=== PATIENT | male | born 1990 | race Caucasian/White ===

== ENCOUNTER 2018-11-10 08:56 | Emergency (ER) | payer OTHER ==
[2018-11-10 09:12] VITALS: BP 124/87; PULSE 84; RESP 18; TEMP 98.5
--- NOTE | 2018-11-10 09:25 | ED ---
ENT HPI - General Chief complaint: ENT Stated complaint: sore throat Time Seen by Provider: 11/10/18 09:00 Source: patient, RN notes reviewed, old records reviewed Mode of arrival: ambulatory Limitations: no limitations - History of Present Illness Initial comments: Patient is a 19-year-old male has restarted today with sore throat 4 days. Patient reports that it seems it seemed he complains a minor cough as well. Patient states is taking DayQuil for relief of symptoms. Patient states that he's had a nonsmoker. Denies any fevers or chills.Patient denies any recent fever, chills, shortness of breath, chest pain, back pain, abdominal pain, nausea vomiting, numbness or tingling, dysuria or hematuria, constipation or diarrhea, headaches or visual changes, or any other current symptoms - Related Data Previous Rx's Medication Instructions Recorded Azithromycin [Zithromax Z-pack] 0 mg PO DIRECTED #6 tab 11/10/18 Fluticasone Propionate [Flonase 1 spray EA NOSTRIL BID #1 bottle 11/10/18 Allergy Relief] Loratadine-Pseudoeph 5-120 mg 1 each PO Q12HR #20 tab 11/10/18 [Claritin-D 12 HR] Allergies Allergy/AdvReac Type Severity Reaction Status Date / Time No Known Allergies Allergy Verified 11/10/18 09:09 Review of Systems ROS Statement: Those systems with pertinent positive or pertinent negative responses have been documented in the HPI. ROS Other: All systems not noted in ROS Statement are negative. Past Medical History Past Medical History: No Reported History History of Any Multi-Drug Resistant Organisms: None Reported Past Surgical History: Orthopedic Surgery Additional Past Surgical History / Comment(s): LEFT KNEE SURGERY Past Psychological History: No Psychological Hx Reported Smoking Status: Never smoker Past Alcohol Use History: Occasional Past Drug Use History: None Reported General Exam - General Exam Comments Initial Comments: 19-year-old male. Alert and oriented. No distress. Limitations: no limitations General appearance: alert, in no apparent distress Head exam: Present: atraumatic, normocephalic, normal inspection Eye exam: Present: normal appearance, PERRL, EOMI. Absent: scleral icterus, conjunctival injection, periorbital swelling ENT exam: Present: normal exam, normal oropharynx (Minimal erythema. No exudate. No tonsillar adenopathy or swelling.), mucous membranes moist Neck exam: Present: normal inspection. Absent: tenderness, meningismus, lymphadenopathy Respiratory exam: Present: normal lung sounds bilaterally. Absent: respiratory distress, wheezes, rales, rhonchi, stridor Cardiovascular Exam: Present: regular rate, normal rhythm, normal heart sounds. Absent: systolic murmur, diastolic murmur, rubs, gallop, clicks GI/Abdominal exam: Present: soft, normal bowel sounds. Absent: distended, tenderness, guarding, rebound, rigid Extremities exam: Present: normal inspection, full ROM, normal capillary refill. Absent: tenderness, pedal edema, joint swelling, calf tenderness Back exam: Present: normal inspection Neurological exam: Present: alert, oriented X3, CN II-XII intact Psychiatric exam: Present: normal affect, normal mood Course Vital Signs 11/10/18 09:09 Temperature 98.5 F Pulse Rate 84 Respiratory 18 Rate Blood Pressure 124/87 O2 Sat by Pulse 100 Oximetry Medical Decision Making - Medical Decision Making Patient is a 27-year-old male presents emergency department today for violation for sore throat, he states this feels worse in the morning. Discussed Patient seems most likely be suffering from postnasal drip. Discussed putting the Patient on ALLERGY medication of Flonase. Discussed if symptoms continue to progress or worsen that he can start azithromycin for bronchitis he does state he has had a productive cough and slight cough. His lungs are clear to auscultation. Patient understands treatment plan will comply. Return parameters were discussed. Disposition Clinical Impression: PND (post-nasal drip), URI (upper respiratory infection) Disposition: HOME SELF-CARE Condition: Good Instructions (If sedation given, give patient instructions): Allergies (ED), Postnasal Drip (DC), Upper Respiratory Infection (ED) Additional Instructions: Take decongestant nasal spray and oral decongestants as prescribed. His symptoms progress or he have a worsening productive cough started azithromycin. Follow-up with your PCP. Prescriptions: Loratadine-Pseudoeph 5-120 mg [Claritin-D 12 HR] 1 each PO Q12HR #20 tab Fluticasone Propionate [Flonase Allergy Relief] 1 spray EA NOSTRIL BID #1 bottle Azithromycin [Zithromax Z-pack] 0 mg PO DIRECTED #6 tab Is patient prescribed a controlled substance at d/c from ED?: No Referrals: Travon Rouse MD [Primary Care Provider] - 1-2 days Time of Disposition: 09:22
== END 2018-11-10 10:06 | disposition home or self-care (01) ==
LOC: EC 08:56
DX: J06.9 Acute upper respiratory infection, unspecified (principal); R09.82 Postnasal drip
CPT/HCPCS: 99283

== ENCOUNTER 2019-05-07 09:51 | Emergency (ER) | payer OTHER ==
[2019-05-07 09:57] VITALS: BP 151/89; PULSE 62; RESP 20; TEMP 97.7
[2019-05-07] MEDS ORDERED: LIDOCAINE 1% INJ 10MG/ML (20 ML MDV) SQ ONE (10:25)
--- NOTE | 2019-05-07 10:32 | ED ---
Skin/Abscess/FB HPI - General Chief complaint: Skin/Abscess/Foreign Body Stated complaint: finger swelling Time Seen by Provider: 05/07/19 10:15 Source: patient Mode of arrival: ambulatory Limitations: no limitations - History of Present Illness Initial comments: Patient is a 28-year-old male presenting to emergency Department with complaints of a possible abscess in his right middle finger. Patient states he went to [facility] 4 days ago with a possible abscess on his right middle finger that was drained. Patient was started on Bactrim as well. Patient returned the next day to [facility] because the swelling had increased. Patient was told there was nothing else to be done at this time and let the antibiotics work. Patient presents to ER today due to worsening swelling and spreading of this abscess. Patient has been taking the Bactrim as prescribed. Patient denies any fever, chills, nausea, vomiting. Patient has no other complaints at this time. Upon arrival to the ER, vital signs are stable. - Related Data Previous Rx's Medication Instructions Recorded Azithromycin [Zithromax Z-pack] 0 mg PO DIRECTED #6 tab 11/10/18 Fluticasone Propionate [Flonase 1 spray EA NOSTRIL BID #1 bottle 11/10/18 Allergy Relief] Loratadine-Pseudoeph 5-120 mg 1 each PO Q12HR #20 tab 11/10/18 [Claritin-D 12 HR] Cephalexin [Keflex] 500 mg PO Q6HR 5 Days #20 cap 05/07/19 Allergies Allergy/AdvReac Type Severity Reaction Status Date / Time No Known Allergies Allergy Verified 05/07/19 09:57 Review of Systems ROS Statement: Those systems with pertinent positive or pertinent negative responses have been documented in the HPI. ROS Other: All systems not noted in ROS Statement are negative. Past Medical History Past Medical History: No Reported History History of Any Multi-Drug Resistant Organisms: None Reported Past Surgical History: Orthopedic Surgery Additional Past Surgical History / Comment(s): LEFT KNEE SURGERY Past Psychological History: No Psychological Hx Reported Smoking Status: Never smoker Past Alcohol Use History: Occasional Past Drug Use History: None Reported General Exam - General Exam Comments Initial Comments: GENERAL: Well-appearing, well-nourished and in no acute distress. HEAD: Atraumatic, normocephalic. EYES: Pupils equal round and reactive to light, extraocular movements intact, sclera anicteric, conjunctiva are normal. ENT: Moist mucous membranes. NECK: Normal range of motion, supple without lymphadenopathy or JVD. LUNGS: Breath sounds clear to auscultation bilaterally and equal. No wheezes rales or rhonchi. HEART: Regular rate and rhythm without murmurs, rubs or gallops. EXTREMITIES: Patient has full range of motion of his right fingers. Patient is neurovascular intact. NEUROLOGICAL: Cranial nerves II through XII grossly intact. Normal speech, normal gait. PSYCH: Normal mood, normal affect. SKIN: Warm, Dry, normal turgor, no rashes. Patient has a large abscess on the palmar aspect of the right middle finger, distal phalanx area. Limitations: no limitations Course Vital Signs 05/07/19 05/07/19 09:55 11:27 Temperature 97.7 F 97.7 F Pulse Rate 62 62 Respiratory 20 20 Rate Blood Pressure 151/89 151/89 O2 Sat by Pulse 99 99 Oximetry Procedures - Incision & Drainage Consent Obtained: verbal consent Indication: Abscess Site: other (Right middle finger, distal phalanx, palmar aspect) Size (cm): 3 Anesthetic Used: lidocaine 1% Amount (mLs): 2 I&D Cleaning Method: Chloroprep, Alcohol Wipe Sterile Field Used?: Yes Scalpel Used: #11 Needle Aspiration Performed?: No Irrigation Performed?: No I&D Drainage Obtained: Pus, Blood Culture Obtained?: No Patient Tolerated Procedure: well Medical Decision Making - Medical Decision Making Patient is a 28-year-old male presenting with an abscess to the right middle finger, palmar aspect, distal phalanx area consistent with a possible felon with associated cellulitis. Patient is currently taking Bactrim. An I&D was performed at [facility] 4 days ago however the abscess is increasing in size. Vital signs are stable, afebrile. An I&D was performed with moderate amount of drainage. Patient tolerated procedure well. Patient will continue with Bactrim and also added Keflex. Patient was given referral to hand specialist for follow-up. Patient is stable for discharge at this time and he is in agreement with this plan of care. Return parameters were discussed with the patient he verbalizes understanding. Case discussed with Dr. Scott. Disposition Clinical Impression: Felon of finger of right hand, Cellulitis of right middle finger Disposition: HOME SELF-CARE Condition: Stable Instructions (If sedation given, give patient instructions): Abscess Incision and Drainage (DC) Additional Instructions: Please return to the Emergency Department if symptoms worsen or any other concerns. Follow-up with PCP or hand doctor as discussed. Take antibiotics as directed. Continue with warm water soaks once or twice a day. Prescriptions: Cephalexin [Keflex] 500 mg PO Q6HR 5 Days #20 cap Is patient prescribed a controlled substance at d/c from ED?: No Referrals: Travon Rouse MD [Primary Care Provider] - 1-2 days Won Morris DO [Doctor of Osteopathic Medicine] - 1-2 days
== END 2019-05-07 11:26 | disposition home or self-care (01) ==
LOC: EC 09:51
DX: L03.011 Cellulitis of right finger (principal)
CPT/HCPCS: 99283; 10060; J2001

== ENCOUNTER 2020-03-13 09:34 | Emergency (ER) | payer BC ==
[2020-03-13 09:38] VITALS: BP 174/95; PULSE 72; RESP 18; TEMP 97.2
--- NOTE | 2020-03-13 10:16 | XR ---
EXAMINATION TYPE: XR chest 2V DATE OF EXAM: 03/13/2020 COMPARISON: None HISTORY: 29-year-old male with cough TECHNIQUE: PA and lateral views FINDINGS: The cardiomediastinal silhouette, aorta, and pulmonary vasculature are within normal limits. Mild elo tral peribronchial cuffing. No consolidation or pleural effusion. IMPRESSION: Mild central peribronchial cuffing could reflect bronchitis or asthma. No focal infiltrate.
--- NOTE | 2020-03-13 10:23 | ED ---
URI HPI - General Chief Complaint: Upper Respiratory Infection Stated Complaint: bronchitis Time Seen by Provider: 03/13/20 09:39 Source: patient, RN notes reviewed Mode of arrival: ambulatory Limitations: no limitations - History of Present Illness Initial Comments: This a 29-year-old male presents emergency Department chief complaint cough congestion times one week. Patient states has worsened over the last 2 days. He stateswheezing. Patient states she is a nonsmoker no history of asthma. Patient believes he has acute bronchitis states he states then around multiple sick people with recent diagnosis. Patient denies fevers or chills no chest pain no headache no dizziness mild nasal congestion. - Related Data Previous Rx's Medication Instructions Recorded Azithromycin [Zithromax Z-pack (6 0 mg PO DIRECTED #6 tab 11/10/18 tabs)] Fluticasone Propionate [Flonase 1 spray EA NOSTRIL BID #1 bottle 11/10/18 Allergy Relief] Loratadine-Pseudoeph 5-120 mg 1 each PO Q12HR #20 tab 11/10/18 [Claritin-D 12 HR] Cephalexin [Keflex] 500 mg PO Q6HR 5 Days #20 cap 05/07/19 Azithromycin [Zithromax Z-pack (6 0 mg PO DIRECTED #1 pack 03/13/20 tabs)] predniSONE 50 mg PO DAILY #5 tab 03/13/20 Allergies Allergy/AdvReac Type Severity Reaction Status Date / Time No Known Allergies Allergy Verified 03/13/20 09:38 Review of Systems ROS Statement: Those systems with pertinent positive or pertinent negative responses have been documented in the HPI. ROS Other: All systems not noted in ROS Statement are negative. Past Medical History Past Medical History: No Reported History History of Any Multi-Drug Resistant Organisms: None Reported Past Surgical History: Orthopedic Surgery Additional Past Surgical History / Comment(s): LEFT KNEE SURGERY Past Psychological History: No Psychological Hx Reported Smoking Status: Never smoker Past Alcohol Use History: Occasional Past Drug Use History: None Reported General Exam Limitations: no limitations General appearance: alert, in no apparent distress Head exam: Present: atraumatic, normocephalic, normal inspection Eye exam: Present: normal appearance, PERRL, EOMI. Absent: scleral icterus, conjunctival injection, periorbital swelling ENT exam: Present: normal exam, normal oropharynx, mucous membranes moist Neck exam: Present: normal inspection, full ROM. Absent: tenderness, meningismus, lymphadenopathy Respiratory exam: Present: wheezes (Minimal). Absent: respiratory distress, rales, rhonchi, stridor Cardiovascular Exam: Present: regular rate, normal rhythm, normal heart sounds. Absent: systolic murmur, diastolic murmur, rubs, gallop, clicks Course Vital Signs 03/13/20 09:34 Temperature 97.2 F L Pulse Rate 72 Respiratory 18 Rate Blood Pressure 174/95 O2 Sat by Pulse 99 Oximetry Medical Decision Making - Medical Decision Making X-ray shows evidence of acute bronchitis. Patient was started on azithromycin, steroid pack. Patient's blood pressure is mildly elevated he is advised to follow-up with PCP for recheck and further monitoring. Disposition Clinical Impression: Bronchitis Disposition: HOME SELF-CARE Condition: Stable Instructions (If sedation given, give patient instructions): Upper Respiratory Infection (ED) Additional Instructions: Please return to the Emergency Department if symptoms worsen or any other concerns. Prescriptions: predniSONE 50 mg PO DAILY #5 tab Azithromycin [Zithromax Z-pack (6 tabs)] 0 mg PO DIRECTED #1 pack Is patient prescribed a controlled substance at d/c from ED?: No Referrals: Travon Rouse MD [Primary Care Provider] - 1-2 days Time of Disposition: 10:23
== END 2020-03-13 10:26 | disposition home or self-care (01) ==
LOC: EC 09:34
DX: J40 Bronchitis, not specified as acute or chronic (principal)
CPT/HCPCS: 71046; 99283

== ENCOUNTER → 2020-04-13 | Outpatient (CLI) | payer BC | END | disposition home or self-care (01) | LOC: LABWHC1 13:54 | PROVIDERS: ATTEND Emergency Medicine | DX: Z20.828 Contact with and (suspected) exposure to other viral communicable diseases (principal) | CPT/HCPCS: U0003; C9803 ==

== ENCOUNTER 2020-12-20 10:23 | Emergency (ER) | payer BC ==
[2020-12-20 10:26] VITALS: BP 165/92; PULSE 73; RESP 16; TEMP 97.9
--- NOTE | 2020-12-20 11:05 | ED ---
General Adult HPI - General Chief complaint: Extremity Injury, Lower Stated complaint: toe problem Time Seen by Provider: 12/20/20 10:28 Source: patient, RN notes reviewed Mode of arrival: ambulatory Limitations: no limitations - History of Present Illness Initial comments: Is a 30-year-old male presents to the emergency department complaining of right great toe pain. On the medial aspect he does have a small paronychia he denied any injury or trauma. He denied any history of ingrown toenails. He did note that he stubbed his toe 3 days ago. He notes that the toe became more painful over the last 3 days. He denied any other issues or complaints. He denied any chest pain shortness of breath headache nausea vomiting diarrhea constipation fever fatigue chills. - Related Data Previous Rx's Medication Instructions Recorded Azithromycin [Zithromax Z-pack (6 0 mg PO DIRECTED #6 tab 11/10/18 tabs)] Fluticasone Propionate [Flonase 1 spray EA NOSTRIL BID #1 bottle 11/10/18 Allergy Relief] Loratadine-Pseudoeph 5-120 mg 1 each PO Q12HR #20 tab 11/10/18 [Claritin-D 12 HR] Cephalexin [Keflex] 500 mg PO Q6HR 5 Days #20 cap 05/07/19 Azithromycin [Zithromax Z-pack (6 0 mg PO DIRECTED #1 pack 03/13/20 tabs)] predniSONE 50 mg PO DAILY #5 tab 03/13/20 Cephalexin [Keflex] 500 mg PO Q6HR #40 cap 12/20/20 Allergies Allergy/AdvReac Type Severity Reaction Status Date / Time No Known Allergies Allergy Verified 03/13/20 09:38 Review of Systems ROS Statement: Those systems with pertinent positive or pertinent negative responses have been documented in the HPI. ROS Other: All systems not noted in ROS Statement are negative. Past Medical History Past Medical History: No Reported History History of Any Multi-Drug Resistant Organisms: None Reported Past Surgical History: Orthopedic Surgery Additional Past Surgical History / Comment(s): LEFT KNEE SURGERY Past Psychological History: No Psychological Hx Reported Smoking Status: Never smoker Past Alcohol Use History: Occasional Past Drug Use History: None Reported General Exam Limitations: no limitations General appearance: alert, in no apparent distress Head exam: Present: atraumatic, normocephalic, normal inspection Eye exam: Present: normal appearance, PERRL, EOMI. Absent: scleral icterus, conjunctival injection, periorbital swelling Neck exam: Present: normal inspection Respiratory exam: Present: normal lung sounds bilaterally. Absent: respiratory distress, wheezes, rales, rhonchi, stridor Cardiovascular Exam: Present: regular rate, normal rhythm, normal heart sounds. Absent: systolic murmur, diastolic murmur, rubs, gallop, clicks Extremities exam: Present: normal inspection, full ROM, normal capillary refill, other (Very small right great toe medial paronychia, nontender.). Absent: tenderness, pedal edema, joint swelling, calf tenderness Neurological exam: Present: alert, oriented X3 Psychiatric exam: Present: normal affect, normal mood Skin exam: Present: warm, dry, intact, normal color. Absent: rash Course Vital Signs 12/20/20 10:24 Temperature 97.9 F Pulse Rate 73 Respiratory 16 Rate Blood Pressure 165/92 O2 Sat by Pulse 99 Oximetry Medical Decision Making - Medical Decision Making 1-year-old male with a right great toe paronychia. Nailfold was gently lifted to express pus. Patient states that his toe feels better after. Case discussed with Dr. Molina outpatient discharge home with follow-up to primary care. Disposition Clinical Impression: Paronychia of great toe of right foot Disposition: HOME SELF-CARE Condition: Stable Instructions (If sedation given, give patient instructions): Paronychia (ED) Additional Instructions: Please return to the Emergency Department if symptoms worsen or any other concerns. Follow-up with primary care in the next several days. Take antibiotics as prescribed. Salt water rinses washes. Is patient prescribed a controlled substance at d/c from ED?: No Referrals: Travon Rouse MD [Primary Care Provider] - 1-2 days Time of Disposition: 11:04
== END 2020-12-20 11:15 | disposition home or self-care (01) ==
LOC: EC 10:23
DX: L03.031 Cellulitis of right toe (principal)
CPT/HCPCS: 99283

== ENCOUNTER → 2021-02-03 | Outpatient (CLI) | payer BC ==
--- NOTE | 2021-02-04 08:25 | MR ---
EXAMINATION TYPE: MR knee LT wo con DATE OF EXAM: 02/03/2021 COMPARISON: None. HISTORY: Lt knee anterior and posterior pain, locking and swelling x5 months. TECHNIQUE: Multiplanar, multisequence imaging of the left knee is performed without IV contrast. FINDINGS: MEDIAL MENISCUS: Anterior horn is intact without tear. Subtle increased signal and fraying posterior margin of the posterior horn, cannot exclude subtle tear at this level sagittal images 27 and 28. LATERAL MENISCUS: Anterior and posterior horns are intact without tear. CRUCIATE LIGAMENTS: The anterior and posterior cruciate ligaments are intact and unremarkable. COLLATERAL LIGAMENTS: The medial collateral ligament and lateral collateral ligament complex are inta ct and unremarkable. EXTENSOR MECHANISM: Visualized quadriceps and patellar tendons are intact. EFFUSION: No significant suprapatellar joint effusion. POPLITEAL CYST: No popliteal/ly cyst. TRICOMPARTMENT SPACES: Tricompartment joint space are fairly well-maintained. No significant spurring . CARTILAGE: Tricompartment articular cartilage is preserved. BONE MARROW SIGNAL: No focal abnormal marrow signal is appreciated. OTHER: No additional significant abnormality is appreciated. IMPRESSION: Possible subtle tear posterior horn medial meniscus otherwise unremarkable study.
== END | disposition home or self-care (01) ==
LOC: RADMRIMAIN 19:14
PROVIDERS: ATTEND Orthopaedic Surgery
DX: M25.562 Pain in left knee (principal); R22.42 Localized swelling, mass and lump, left lower limb

== ENCOUNTER 2023-10-15 22:29 | Emergency (ER) | payer BC ==
--- NOTE | 2023-10-15 23:07 | ED ---
Extremity Problem HPI - General Chief complaint: Extremity Problem,Nontraumatic Stated complaint: L Shoulder injury Time Seen by Provider: 10/15/23 22:44 Source: patient Mode of arrival: ambulatory Limitations: no limitations - History of Present Illness Initial comments: 32-year-old male presents to the ED with complaints of left shoulder pain. Patient states that he was walking around the house carrying his daughter. Shortly after that started to note pain of his left shoulder. Pain worse with movement. Denies any other injury or trauma to the area. States associated with the left shoulder pain he is having paresthesias going down his arm. No fever or chills. No chest pain shortness of breath. No other complaints at this time. - Related Data Previous Rx's Medication Instructions Recorded Azithromycin [Zithromax Z-pack (6 0 mg PO DIRECTED #6 tab 11/10/18 tabs)] Fluticasone Propionate [Flonase 1 spray EA NOSTRIL BID #1 bottle 11/10/18 Allergy Relief] Loratadine-Pseudoeph 5-120 mg 1 each PO Q12HR #20 tab 11/10/18 [Claritin-D 12 HR] Cephalexin [Keflex] 500 mg PO Q6HR 5 Days #20 cap 05/07/19 Azithromycin [Zithromax Z-pack (6 0 mg PO DIRECTED #1 pack 03/13/20 tabs)] predniSONE 50 mg PO DAILY #5 tab 03/13/20 Cephalexin [Keflex] 500 mg PO Q6HR #40 cap 12/20/20 Allergies Allergy/AdvReac Type Severity Reaction Status Date / Time No Known Allergies Allergy Verified 10/15/23 22:38 Review of Systems ROS Statement: Those systems with pertinent positive or pertinent negative responses have been documented in the HPI. ROS Other: All systems not noted in ROS Statement are negative. Past Medical History Past Medical History: No Reported History History of Any Multi-Drug Resistant Organisms: None Reported Past Surgical History: Hernia Repair, Orthopedic Surgery Additional Past Surgical History / Comment(s): LEFT KNEE SURGERY Past Psychological History: No Psychological Hx Reported Smoking Status: Never smoker Past Alcohol Use History: Occasional Past Drug Use History: None Reported General Exam Limitations: no limitations General appearance: alert, in no apparent distress Eye exam: Present: normal appearance Neck exam: Present: normal inspection, other (No midline spinal TTP) Respiratory exam: Present: normal lung sounds bilaterally Cardiovascular Exam: Present: regular rate GI/Abdominal exam: Present: soft, normal bowel sounds. Absent: distended, tenderness, guarding, rebound, rigid Extremities exam: Present: other (Strength and sensation of bilateral upper lower extremities equal and intact. Full passive range of motion of the left upper extremity without difficulty. Radial pulses intact.) Back exam: Present: normal inspection Neurological exam: Present: alert, oriented X3 Skin exam: Present: warm, dry Course Vital Signs 10/15/23 22:38 Temperature 98.6 F Pulse Rate 84 Respiratory 16 Rate Blood Pressure 127/81 O2 Sat by Pulse 99 Oximetry Medical Decision Making - Medical Decision Making Was pt. sent in by a medical professional or institution (, [place], [facility]INA PORTER, urgent care, hospital, or intermediate...) When possible be specific @ -No Did you speak to anyone other than the patient for history (EMS, parent, family, police, friend...)? What history was obtained from this source @ -No Did you review nursing and triage notes (agree or disagree)? Why? @ -I reviewed and agree with nursing and triage notes Were old charts reviewed (outside hosp., previous admission, EMS record, old EKG, old radiological studies, urgent care reports/EKG's, intermediate records)? Report findings @ -No old charts were reviewed Differential Diagnosis (chest pain, altered mental status, abdominal pain women, abdominal pain men, vaginal bleeding, weakness, fever, dyspnea, syncope, headache, dizziness, GI bleed, back pain, seizure, CVA, palpatations, mental health, musculoskeletal)? @ -Differential Musculoskeletal Muscular strain, contusion, ligament sprain, fracture, arthritis, septic arthritis, bursitis, cellulitis, muscle spasm, nerve compression, DVT, arterial occlusion, herpes zoster, electrolyte abnormality, tumor.... This is not meant to be in all inclusive list EKG interpreted by me (3pts min.). @ -None X-rays interpreted by me (1pt min.). @ -X-ray of the shoulder interpreted me which revealed no evidence of acute finding. CT interpreted by me (1pt min.). @ -None done U/S interpreted by me (1pt. min.). @ -None done What testing was considered but not performed or refused? (CT, X-rays, U/S, labs)? Why? @ -None What meds were considered but not given or refused? Why? @ -None Did you discuss the management of the patient with other professionals (professionals i.e. , PA, MARINA PORTER, lab, RT, psych nurse, social work lecturer, put in beat adjuster, teacher, environmental protection officer, case sealer)? Give summary @ -No Was smoking cessation discussed for >3mins.? @ -No Was critical care preformed (if so, how long)? @ -No Were there social determinants of health that impacted care today? How? (Homelessness, low income, unemployed, alcoholism, drug addiction, transportation, low edu. Level, literacy, decrease access to med. care, [facility], rehab)? @ -No Was there de-escalation of care discussed even if they declined (Discuss DNR or withdrawal of care, Hospice)? DNR status @ -No What co-morbidities impacted this encounter? (DM, HTN, Smoking, COPD, CAD, Cancer, CVA, ARF, Chemo, Hep., AIDS, mental health diagnosis, sleep apnea, morbid obesity)? @ -None Was patient admitted / discharged? Hospital course, mention meds given and route, prescriptions, significant lab abnormalities, going to OR and other pertinent info. @ -Discharge States 2-year-old male presenting to the ED with complaints of left shoulder pain after carrying his daughter around the house earlier today. No complaints of chest pain or shortness of breath. Notes pain of the left mid shoulder with paresthesias going down his fingers. On examination, strength and sensation equal intact bilateral upper extremities. Patient has a heart score of 0. Symptoms likely noncardiac in nature. Symptoms likely musculoskeletal in nature. Reported he took ibuprofen with improvement of pain earlier. Discharged home in stable condition with instructions to follow-up with his PCP. Undiagnosed new problem with uncertain prognosis? @ -No Drug Therapy requiring intensive monitoring for toxicity (Heparin, Nitro, Insulin, Cardizem)? @ -No Were any procedures done? @ -No Diagnosis/symptom? @ -Left shoulder pain Acute, or Chronic, or Acute on Chronic? @ -Acute Uncomplicated (without systemic symptoms) or Complicated (systemic symptoms)? @ -Uncomplicated Side effects of treatment? @ -No Exacerbation, Progression, or Severe Exacerbation? @ -No Poses a threat to life or bodily function? How? (Chest pain, [place], [place], pneumonia, PE, COPD, DKA, ARF, appy, cholecystitis, CVA, Diverticulitis, Homicidal, Suicidal, threat to staff... and all critical care pts) @ -No Disposition Clinical Impression: Left shoulder pain Disposition: HOME SELF-CARE Condition: Good Additional Instructions: Please return to the Emergency Department if symptoms worsen or any other concerns. Please follow-up with your primary care provider. Is patient prescribed a controlled substance at d/c from ED?: No Referrals: Pedro Hopkins MD [Primary Care Provider] - 1-2 days Time of Disposition: 00:54
[2023-10-15 23:19] VITALS: RESP 16
--- NOTE | 2023-10-16 00:35 | XR ---
EXAM: XR Left Shoulder Complete, 2 or More Views CLINICAL HISTORY: ITS.REASON XR Reason: r/o acute injury TECHNIQUE: Two or more views of the left shoulder. COMPARISON: No relevant prior studies available. FINDINGS: Bones/joints: Unremarkable. No acute fracture. No dislocation. Soft tissues: Unremarkable. IMPRESSION: Normal left shoulder x-rays.
[2023-10-16 01:14] VITALS: BP 121/80; PULSE 79; TEMP 98.5
== END 2023-10-16 01:03 | disposition home or self-care (01) ==
LOC: EC 22:29
DX: M25.512 Pain in left shoulder (principal)
CPT/HCPCS: 99283

== ENCOUNTER 2024-03-10 13:07 | Emergency (ER) | payer BC ==
--- NOTE | 2024-03-10 13:19 | ED ---
General Adult HPI - General Stated complaint: R Ankle Injury Time Seen by Provider: 03/10/24 13:10 Source: patient, RN notes reviewed, old records reviewed - History of Present Illness Initial comments: 33-year-old male who presents to the emergency complaining of right ankle pain. Patient states he dropped a renetta on the ankle. Patient states it happened about an hour ago and it still hurts to walk so he wanted come in to be checked out. Patient denies any foot pain patient has any knee pain patient denies any sites of bleeding. - Related Data Previous Rx's Medication Instructions Recorded Azithromycin [Zithromax Z-pack (6 0 mg PO DIRECTED #6 tab 11/10/18 tabs)] Fluticasone Propionate [Flonase 1 spray EA NOSTRIL BID #1 bottle 11/10/18 Allergy Relief] Loratadine-Pseudoeph 5-120 mg 1 each PO Q12HR #20 tab 11/10/18 [Claritin-D 12 HR] Cephalexin [Keflex] 500 mg PO Q6HR 5 Days #20 cap 05/07/19 Azithromycin [Zithromax Z-pack (6 0 mg PO DIRECTED #1 pack 03/13/20 tabs)] predniSONE 50 mg PO DAILY #5 tab 03/13/20 Cephalexin [Keflex] 500 mg PO Q6HR #40 cap 12/20/20 Allergies Allergy/AdvReac Type Severity Reaction Status Date / Time No Known Allergies Allergy Verified 03/10/24 13:20 Review of Systems ROS Statement: Those systems with pertinent positive or pertinent negative responses have been documented in the HPI. ROS Other: All systems not noted in ROS Statement are negative. Past Medical History Past Medical History: No Reported History History of Any Multi-Drug Resistant Organisms: None Reported Past Surgical History: Hernia Repair, Orthopedic Surgery Additional Past Surgical History / Comment(s): LEFT KNEE SURGERY Past Psychological History: No Psychological Hx Reported Smoking Status: Never smoker Past Alcohol Use History: Occasional Past Drug Use History: None Reported General Exam - General Exam Comments Initial Comments: GENERAL Patient is well-developed and well-nourished. Patient is in mild distress. EYES Patient's pupils are equal and round. Extraocular motion is intact SKIN Unremarkable NEURO The patient is alert and oriented A&Ox3 PYSCH Patient has normal interpersonal interactions. MUSCULOSKELETAL Patient has an area of superficial abrasion just above the ankle on the distal lateral aspect of the leg. Course Vital Signs 03/10/24 03/10/24 13:17 13:55 Temperature 97.4 F L Pulse Rate 100 96 Respiratory 22 18 Rate Blood Pressure 120/74 112/78 O2 Sat by Pulse 98 98 Oximetry Medical Decision Making - Medical Decision Making Was pt. sent in by a medical professional or institution (JUSTINE Mojica, SUPERVISOR [employer]ESSING, urgent care, hospital, or detention...) When possible be specific @ -No Did you speak to anyone other than the patient for history (EMS, parent, family, police, friend...)? What history was obtained from this source @ -No Did you review nursing and triage notes (agree or disagree)? Why? @ -I reviewed and agree with nursing and triage notes Were old charts reviewed (outside hosp., previous admission, EMS record, old EKG, old radiological studies, urgent care reports/EKG's, detention records)? Report findings @ -No old charts were reviewed Differential Diagnosis? @ -Differential Musculoskeletal Muscular strain, contusion, ligament sprain, fracture, arthritis, septic arthritis, bursitis, cellulitis, muscle spasm, nerve compression, DVT, arterial occlusion, herpes zoster, electrolyte abnormality, tumor.... This is not meant to be in all inclusive list EKG interpreted by me (3pts min.). @ -As above X-rays interpreted by me (1pt min.). @ -None done CT interpreted by me (1pt min.). @ -None done U/S interpreted by me (1pt. min.). @ -None done What testing was considered but not performed or refused? (CT, X-rays, U/S, labs)? Why? @ -None What meds were considered but not given or refused? Why? @ -None Did you discuss the management of the patient with other professionals (professionals i.e. JUSTINE Mojica, SUPER[employer], lab, RT, psych nurse, social worker masters, electrophysiology nurse practitioner, teacher, court security officer, rn field case manager)? Give summary @ -No Was smoking cessation discussed for >3mins.? @ -No Was critical care preformed (if so, how long)? @ -No Were there social determinants of health that impacted care today? How? (Homelessness, low income, unemployed, alcoholism, drug addiction, transportation, low edu. Level, literacy, decrease access to med. care, nursing home, rehab)? @ -No Was there de-escalation of care discussed even if they declined (Discuss DNR or withdrawal of care, Hospice)? DNR status @ -No What co-morbidities impacted this encounter? (DM, HTN, Smoking, COPD, CAD, Cancer, CVA, ARF, Chemo, Hep., AIDS, mental health diagnosis, sleep apnea, morbid obesity)? @ -None Was patient admitted / discharged? Hospital course, mention meds given and route, prescriptions, significant lab abnormalities, going to OR and other pertinent info. @ -Patient's x-ray of the tibia fibula showed no acute fracture. Undiagnosed new problem with uncertain prognosis? @ -No Drug Therapy requiring intensive monitoring for toxicity (Heparin, Nitro, Insulin, Cardizem)? @ -No Were any procedures done? @ -No Diagnosis/symptom? @ -Contusion Acute, or Chronic, or Acute on Chronic? @ -Acute Uncomplicated (without systemic symptoms) or Complicated (systemic symptoms)? @ -Uncomplicated Side effects of treatment? @ -No Exacerbation, Progression, or Severe Exacerbation? @ -No Poses a threat to life or bodily function? How? (Chest pain, [place], [place], pneumonia, PE, COPD, DKA, ARF, appy, cholecystitis, CVA, Diverticulitis, Homicidal, Suicidal, threat to staff... and all critical care pts) @ -No Disposition Clinical Impression: Contusion of leg Disposition: HOME SELF-CARE Condition: Good Instructions (If sedation given, give patient instructions): Contusion in Adults (ED) Is patient prescribed a controlled substance at d/c from ED?: No Referrals: Pedro Hopkins MD [Primary Care Provider] - 1-2 days Time of Disposition: 13:47
[2024-03-10 13:20] VITALS: TEMP 97.4
--- NOTE | 2024-03-10 13:40 | XR ---
EXAMINATION TYPE: XR tibia fibula RT DATE OF EXAM: 03/10/2024 1:32 PM CLINICAL INDICATION: Male, 33 years old with history of Trauma; COMPARISON: None TECHNIQUE: XR tibia fibula RT; examined in AP and lateral projections. FINDINGS: No evidence of any acute osseous pathology, joint dislocation, or soft tissue swelling is n oted. IMPRESSION: No evidence of acute fracture. [facility], , 03/10/2024 1:37 PM
[2024-03-10 13:59] VITALS: BP 112/78; PULSE 96; RESP 18
== END 2024-03-10 13:59 | disposition home or self-care (01) ==
LOC: EC 13:07
CPT/HCPCS: 99283